=== PATIENT | male | born 2000 | race Two or more races ===

== ENCOUNTER 2021-11-08 16:21 | Emergency (ER) | payer MEDICAID ==
[~2021-11-08] VITALS: Ht 177.8 cm; Wt 132.5 kg
[2021-11-08 20:15] VITALS: BP 138/79
[2021-11-08] MEDS ORDERED: methylPREDNISolone SOD SUCC 125 MG/2 ML VL IM ONE (20:30)
[2021-11-08] MEDS ORDERED: INDO25CA17 PO (20:30)
[2021-11-08] MEDS ORDERED: KETOROLAC TROMETH 60MG/2ML VIAL IM ONE (20:30)
== END 2021-11-08 21:15 | disposition home or self-care (01) ==
LOC: ER 16:21
DX: M10.9 Gout, unspecified (principal)
CPT/HCPCS: 73630; 96372; 99284; J1885; J2930

== ENCOUNTER 2021-12-11 16:31 | Emergency (ER) | payer MEDICAID ==
[~2021-12-11] VITALS: Ht 175.3 cm; Wt 130.0 kg
[~2021-12-11 16:31] MED LIST: INDO25CA17 PO
[2021-12-11 16:47] VITALS: BP 150/91
[2021-12-11] MEDS ORDERED: traMADol HCL 50 MG TAB PO ONE (17:00)
[2021-12-11 17:49] LABS: Basophils # (auto) 0.1 10 ^3/uL (0-0.2); Basophils % (auto) 0.5 % (0.0-2.0); Eosinophils # (auto) 0.2 10 ^3/uL (0-0.8); Eosinophils % (auto) 1.9 % (0.0-7.0); Hematocrit 50.5 % (41.0-53.0); Hemoglobin 17.1 g/dL (13.5-17.5); Lymphocytes # (auto) 3.6 10 ^3/uL (0.4-5.4); Lymphocytes % (auto) 29.2 % (10.0-50.0); Mean Corpuscular Hemoglobin 28.9 pg (28.0-32.0); Mean Corpuscular Hgb Conc. 33.8 g/dL (32.0-36.0); Mean Corpuscular Volume 85.4 fL (80.0-100.0); Monocytes # (auto) 0.8 10 ^3/uL (0-1.3); Monocytes % (auto) 6.4 % (0.0-12.0); Neutrophils # (auto) 7.6 10 ^3/uL (1.6-8.6); Nucleated Red Blood Cells % 0.3 %; Red Blood Cells 5.91 10^6/uL (4.5-5.90); White Blood Cell 12.3 10^3/uL (4.4-10.8)
[2021-12-11] MEDS ORDERED: INDO25CA17 PO (18:38)
== END 2021-12-11 22:41 | disposition home or self-care (01) ==
LOC: ER 16:31
DX: M10.9 Gout, unspecified (principal); Z79.899 Other long term (current) drug therapy
CPT/HCPCS: 36415; 73700; 84550; 85025